=== PATIENT | female | born 1975 | race African-American/Black ===

== ENCOUNTER 2024-08-19 20:56 | Emergency (ER) | payer MEDICAID, OTHER ==
[~2024-08-19] VITALS: Ht 167.6 cm; Wt 65.0 kg
[2024-08-19 21:01] VITALS: O2SAT 100
[2024-08-20] MEDS ORDERED: LIDO1ADH7 TP (00:09)
[2024-08-20] MEDS ORDERED: CYCL10TA21 MT (00:09)
[2024-08-20] MEDS: LIDOCAINE 5% PATCH TOP ONE (00:39)
[2024-08-20] MEDS: KETOROLAC 30MG/ML VIAL IM ONE (00:39)
[2024-08-20] MEDS: ACETAMINOPHEN 325MG TABLET PO ONE (00:39)
[2024-08-20 00:56] VITALS: BP 116/52; PULSE 65; RESP 16; TEMP 36.44736; O2SAT 99
== END 2024-08-20 00:58 | disposition home or self-care (01) ==
LOC: ER 20:56
DX: G57.00 Lesion of sciatic nerve, unspecified lower limb (principal); E11.9 Type 2 diabetes mellitus without complications; I10 Essential (primary) hypertension; Z88.0 Allergy status to penicillin
CPT/HCPCS: 99283; 96372; J1885